=== PATIENT | female | born 1970 | race African-American/Black ===

== ENCOUNTER 2016-07-29 10:59 | Emergency (ER) | payer OTHER ==
[2016-07-29 14:00] LABS: URINE SOURCE CLEAN CATCH
[2016-07-29 14:10] LABS: URINE APPEARANCE CLEAR; URINE BILIRUBIN NEG (NEG); URINE BLOOD NEG (NEG); URINE COLOR YELLOW; URINE GLUCOSE NEG (NEG); URINE KETONE NEG (NEG); URINE LEUKOCYTE ESTERASE NEG (NEG); URINE NITRATE NEG (NEG); URINE PH 5.5 (5-8); URINE PROTEIN NEG (NEG)
[2016-07-29 14:16] LABS: CULTURE INDICATED? NO
== END 2016-07-29 14:49 | disposition home or self-care (01) ==
LOC: CED 10:59 → CFTX 10:59
PROVIDERS: Nurse Practitioner
DX: S33.5XXA Sprain of ligaments of lumbar spine, initial encounter (principal); I10 Essential (primary) hypertension; X50.9XXA Other and unspecified overexertion or strenuous movements or postures, initial encounter; Y92.009 Unspecified place in unspecified non-institutional (private) residence as the place of occurrence of the external cause
CPT/HCPCS: 81003; 84703; 96372; 99283; J1885